=== PATIENT | female | born 1950 | race African-American/Black ===

== ENCOUNTER 2020-11-19 14:25 | Observation (INO) ==
[2020-11-19] MEDS ORDERED: ALBUTEROL/IPRATROPIUM 3 ML NEB RESP TX STA (15:32)
[2020-11-19] MEDS ORDERED: methylPREDNISolone SOD SUC 125 MG/2 ML VIAL IV STA (15:32)
[2020-11-19 15:58] LABS: Basophils % 0.2 % (0.0-0.8); Eosinophils # 0.1 10*3/uL (0.0-0.87); Eosinophils % 2.2 % (0.00-10.9); Hematocrit 38.7 VOL% (35.7-47.0); Hemoglobin 12.3 GM/DL (12.0-16.0); Immature Granulocytes % 0.7 %; Immature Granulocytes Absolute 0.03 #; Lymphocytes # 0.7 10*3/uL (1.4-4.0); Lymphocytes % 14.8 % (21.3-54.2); Mean Corpuscular HGB Conc 31.8 GM/DL (32-36); Mean Corpuscular Volume 99.2 FL (87-102); Mean Platelet Volume 11.2 FL (9.6-12.0); Monocytes % 10.7 % (1.7-12.7); Neutrophils % 71.4 % (38.7-73.9); Platelet Count 161 T/CUMM (130-400); Red Cell Distribution Width 13.2 % (9.3-17.3); White Blood Count 4.6 T/CUMM (4-12)
[2020-11-19 16:20] LABS: Blood Urea Nitrogen 13 MG/DL (7-18); Calcium 8.6 MG/DL (8.5-10.1); Carbon Dioxide 25 MMOL/L (21-32); Estimated Glom Filtration Rate 76 ML/MIN; Glucose 85 MG/DL (74-106); Osmolality,Calculated 275.5 MOS/KG (273-304); Potassium 3.3 MMOL/L (3.5-5.1); Sodium 139 MMOL/L (136-145)
[2020-11-19 16:27] LABS: Microcytosis Slight; Platelet Estimate Adequate
[2020-11-19] MEDS ORDERED: LEVOFLOXACIN INJ 750 MG/150 ML PREMIX IV STA (17:46)
[2020-11-19] MEDS ORDERED: diphenhydrAMINE 50 MG/1 ML VIAL IV STA ×2 (18:15→18:23)
[2020-11-19] MEDS ORDERED: ALBUTEROL/IPRATROPIUM 3 ML NEB RESP TX PRN (18:20)
[2020-11-19] MEDS ORDERED: hydrALAZINE 20 MG/1 ML VIAL IV PRN (18:20)
[2020-11-19] MEDS ORDERED: ONDANSETRON 4 MG/2 ML VIAL IV PRN (18:20)
[2020-11-19] MEDS ORDERED: ACETAMINOPHEN 325 MG TABLET PO PRN (18:20)
[2020-11-19] MEDS ORDERED: DOCUSATE SODIUM 100 MG CAPSULE PO PRN (18:20)
[2020-11-19] MEDS ORDERED: GLUCAGON 1 MG VIAL IM PRN (18:20)
[2020-11-19] MEDS ORDERED: DEXTROSE 50% 25 GM/50 ML VIAL IV PRN (18:20)
[2020-11-19] MEDS ORDERED: traMADol 50 MG TABLET PO PRN (18:27)
[2020-11-19] MEDS: guaiFENesin/DM ER 600-30 MG TABLET PO SCH (21:19)
[2020-11-19] MEDS: ENOXAPARIN 40 MG/0.4 ML SYRINGE SUBCUT SCH (21:19)
[2020-11-19] MEDS: AZITHROMYCIN INJ 500 MG in SODIUM CHLORIDE 0.9% 250 ML IV SCH (21:19)
[2020-11-19] MEDS: ATORVASTATIN 20 MG TABLET PO SCH (21:19)
[2020-11-19] MEDS: allopurinoL 100 MG TABLET PO SCH (21:19)
[2020-11-19] MEDS: MONTELUKAST 10 MG TABLET PO SCH (21:19)
[2020-11-19] MEDS: VERAPAMIL SR 180 MG TABLET PO SCH (21:19)
[2020-11-19] MEDS: ALBUTEROL 2.5 MG/3 ML NEB RESP TX SCH (22:19)
[2020-11-20] MEDS: ALBUTEROL 2.5 MG/3 ML NEB RESP TX SCH ×4 (00:50→19:35)
[2020-11-20 06:20] LABS: Hematocrit 34.3 VOL% (35.7-47.0); Hemoglobin 11.1 GM/DL (12.0-16.0); Immature Granulocytes % 0.7 %; Immature Granulocytes Absolute 0.02 #; Lymphocytes # 0.4 10*3/uL (1.4-4.0); Mean Corpuscular HGB Conc 32.4 GM/DL (32-36); Mean Corpuscular Volume 98.3 FL (87-102); Mean Platelet Volume 11.5 FL (9.6-12.0); Monocytes % 4.9 % (1.7-12.7); Neutrophils % 79.4 % (38.7-73.9); Platelet Count 164 T/CUMM (130-400); Red Blood Count 3.49 MC/CUMM (3.8-5.5); Red Cell Distribution Width 13.1 % (9.3-17.3); White Blood Count 2.7 T/CUMM (4-12)
[2020-11-20 06:52] LABS: Calcium 8.8 MG/DL (8.5-10.1); Osmolality,Calculated 284.5 MOS/KG (273-304); Potassium 3.5 MMOL/L (3.5-5.1); Risk Ratio 3.82; Thyroid Stimulating Hormone 0.325 uIU/ml (0.358-3.74); VLDL Cholesterol 16.8 MG/DL
[2020-11-20] MEDS ORDERED: FUROSEMIDE 20 MG/2 ML VIAL IV SCH (08:00)
[2020-11-20] MEDS: PANTOPRAZOLE 40 MG TABLET PO SCH (08:51)
[2020-11-20] MEDS: methylPREDNISolone SOD SUC 40 MG/1 ML VIAL IV SCH ×3 (08:52→20:31)
[2020-11-20] MEDS: guaiFENesin/DM ER 600-30 MG TABLET PO SCH ×2 (08:52→20:31)
[2020-11-20] MEDS: POTASSIUM CHLORIDE 20 MEQ TABLET PO PRN ×2 (08:58→10:45)
[2020-11-20] MEDS ORDERED: methylPREDNISolone SOD SUC 40 MG/1 ML VIAL IV SCH (09:00)
[2020-11-20] MEDS: FUROSEMIDE 40 MG/4 ML VIAL IV SCH (15:21)
[2020-11-20] MEDS: ENOXAPARIN 40 MG/0.4 ML SYRINGE SUBCUT SCH (18:13)
[2020-11-20] MEDS: AZITHROMYCIN INJ 500 MG in SODIUM CHLORIDE 0.9% 250 ML IV SCH (18:15)
[2020-11-20] MEDS: VERAPAMIL SR 180 MG TABLET PO SCH (20:31)
[2020-11-20] MEDS: allopurinoL 100 MG TABLET PO SCH (20:31)
[2020-11-20] MEDS: MONTELUKAST 10 MG TABLET PO SCH (20:31)
[2020-11-20] MEDS: ATORVASTATIN 20 MG TABLET PO SCH (20:31)
[2020-11-21] MEDS: ALBUTEROL 2.5 MG/3 ML NEB RESP TX SCH ×4 (00:11→19:03)
[2020-11-21] MEDS: methylPREDNISolone SOD SUC 40 MG/1 ML VIAL IV SCH ×4 (03:45→21:27)
[2020-11-21 05:56] LABS: Basophils % 0.2 % (0.0-0.8); Hematocrit 38.5 VOL% (35.7-47.0); Hemoglobin 12.1 GM/DL (12.0-16.0); Immature Granulocytes % 0.7 %; Immature Granulocytes Absolute 0.08 #; Lymphocytes # 0.6 10*3/uL (1.4-4.0); Lymphocytes % 5.7 % (21.3-54.2); Mean Corpuscular HGB Conc 31.4 GM/DL (32-36); Mean Corpuscular Volume 101.3 FL (87-102); Mean Platelet Volume 11.4 FL (9.6-12.0); Monocytes % 4.8 % (1.7-12.7); Neutrophils % 88.6 % (38.7-73.9); Platelet Count 180 T/CUMM (130-400); Red Cell Distribution Width 13.2 % (9.3-17.3); White Blood Count 10.9 T/CUMM (4-12)
[2020-11-21 06:17] LABS: Calcium 9.4 MG/DL (8.5-10.1); Osmolality,Calculated 287.3 MOS/KG (273-304); Potassium 4.3 MMOL/L (3.5-5.1)
[2020-11-21] MEDS: PANTOPRAZOLE 40 MG TABLET PO SCH (08:51)
[2020-11-21] MEDS: guaiFENesin/DM ER 600-30 MG TABLET PO SCH ×2 (08:51→21:27)
[2020-11-21] MEDS: FUROSEMIDE 40 MG/4 ML VIAL IV SCH ×2 (08:55→16:13)
[2020-11-21] MEDS: AZITHROMYCIN 250 MG TABLET PO SCH (13:00)
[2020-11-21] MEDS: ENOXAPARIN 40 MG/0.4 ML SYRINGE SUBCUT SCH (18:08)
[2020-11-21] MEDS: MONTELUKAST 10 MG TABLET PO SCH (21:27)
[2020-11-21] MEDS: allopurinoL 100 MG TABLET PO SCH (21:27)
[2020-11-21] MEDS: ATORVASTATIN 20 MG TABLET PO SCH (21:27)
[2020-11-21] MEDS: VERAPAMIL SR 180 MG TABLET PO SCH (21:27)
[2020-11-22] MEDS: ALBUTEROL 2.5 MG/3 ML NEB RESP TX SCH ×2 (00:06→07:19)
[2020-11-22] MEDS: methylPREDNISolone SOD SUC 40 MG/1 ML VIAL IV SCH ×2 (03:36→08:49)
[2020-11-22] MEDS: FUROSEMIDE 40 MG/4 ML VIAL IV SCH (08:48)
[2020-11-22] MEDS: AZITHROMYCIN 250 MG TABLET PO SCH (08:49)
[2020-11-22] MEDS: guaiFENesin/DM ER 600-30 MG TABLET PO SCH (08:49)
[2020-11-22] MEDS: PANTOPRAZOLE 40 MG TABLET PO SCH (08:49)
[2020-11-22 12:35] VITALS: BP 156/74
[2020-11-25 16:26] LABS: Alternaria tenuis/alternat IgG 2.6 mcg/mL (<12.0); Aspergillus fumigatus IgG 2.9 mcg/mL (<46.0); Aureobasidium pullulans IgG <2.0 mcg/mL (<18.0); Micropolyspora faeni IgG <2.0 mcg/mL (<5.0); Penicillium Chrysogenum IgG 2.8 mcg/mL (<22.0); Phoma betae IgG 2.1 mcg/mL (<8.0); Thermoactinomyces vulgaris IgG <2.0 mcg/mL (<13.0)
== END 2020-11-22 12:59 | disposition home or self-care (01) ==
LOC: EDBD → EDUNIT# → N.ED 14:25 → N.EDINP 18:20 → INTOOBSV 18:20 → SUATTDRO 18:20 → N.4E 20:12 → UNDODISIN 11-22 12:59
PROVIDERS: ADMIT Hospitalist; ATTEND Hospitalist